=== PATIENT | female | born 1965 | race Two or more races ===

== ENCOUNTER 2023-02-28 12:07 | Emergency (ER) | payer OTHER ==
[~2023-02-28] VITALS: Ht 157.5 cm; Wt 53.1 kg
[~2023-02-28 12:07] MED LIST: SYNTHROID50 MCG; TOPROL XL25 MG
== END 2023-02-28 15:07 | disposition home or self-care (01) ==
LOC: ER 12:07
DX: S92.503A Displaced unspecified fracture of unspecified lesser toe(s), initial encounter for closed fracture (principal); W22.03XA Walked into furniture, initial encounter; Y93.9 Activity, unspecified; Y92.9 Unspecified place or not applicable; Y99.9 Unspecified external cause status

== ENCOUNTER 2023-07-05 11:08 | Emergency (ER) | payer OTHER ==
[~2023-07-05] VITALS: Ht 157.5 cm; Wt 50.8 kg
[2023-07-05] MEDS ORDERED: SYNTHROID75 MCG PO (11:36)
[2023-07-05] MEDS ORDERED: METOPROLOL SUCC50 MG PO (11:36)
[2023-07-05 14:13] LABS: HEMATOCRIT 40.1 % (36.0-45.00); HEMOGLOBIN 13.6 g/dL (12.0-15.00); MEAN CELL VOLUME 86.4 fL (80.00-100.00); MEAN CORPUSCULAR HEMOGLOBIN 29.3 pg (27.00-32.0); MEAN CORPUSCULAR HGB CONC 33.9 g/dl (32.0-36.0); PLATELET COUNT 184 K/uL (150-450); RED BLOOD COUNT 4.64 M/uL (4.00-6.00); RED CELL DISTRIBUTION WIDTH 13.2 % (11.5-14.5)
[2023-07-05 14:57] LABS: ALBUMIN 3.9 gm/dL (3.4-5.0); BILIRUBIN TOTAL 0.55 mg/dL (0.3-1.2); CALCIUM 9.7 mg/dL (8.5-10.1); CREATININE SERUM 0.69 mg/dL (0.55-1.02); GFR 87.69; GLOBULINA 3.8 G/DL (2.4-3.5); POTASSIUM 4.47 mEq/L (3.5-5.1); TOTAL PROTEIN 7.7 gm/dL (6.4-8.2)
[2023-07-05 15:11] LABS: PH,URINE 5.5 (5.0-8.0); URINE APPEARANCE Clear; URINE BILIRRUBIN Negative (NEGATIVE); URINE BLOOD Negative; URINE COLOR Yellow; URINE GLUCOSE Negative (NEGATIVE); URINE LEUKOCYTE Negative; URINE NITRATE Negative; URINE PROTEIN Negative (NEGATIVE); URINE UROBILINOGEN 0.2 E.U./dl
[2023-07-05 15:20] LABS: URINE BACTERIA 2.5 uL (0.0-1933); URINE EPITHELIAL CELLS 1.2 uL (0.0-38.8); URINE RBC 1.4 uL (0.0-20.8); URINE WBC 0.6 uL (0.0-23.2)
== END 2023-07-05 16:57 | disposition home or self-care (01) ==
LOC: ER 11:08
PROVIDERS: General Practice
DX: K21.9 Gastro-esophageal reflux disease without esophagitis (principal); R10.12 Left upper quadrant pain; Z88.0 Allergy status to penicillin; E03.9 Hypothyroidism, unspecified

== ENCOUNTER 2023-08-10 12:27 | Emergency (ER) | payer OTHER ==
[~2023-08-10] VITALS: Ht 157.5 cm; Wt 50.3 kg
[~2023-08-10 12:27] MED LIST changes: +METOPROLOL SUCC50 MG PO; +SYNTHROID75 MCG PO
[2023-08-10 17:05] LABS: PH,URINE 5.5 (5.0-8.0); URINE APPEARANCE Clear; URINE BILIRRUBIN Negative (NEGATIVE); URINE BLOOD Negative; URINE COLOR Yellow; URINE GLUCOSE Negative (NEGATIVE); URINE LEUKOCYTE Negative; URINE NITRATE Negative; URINE PROTEIN Negative (NEGATIVE); URINE UROBILINOGEN 0.2 E.U./dl
[2023-08-10 17:09] LABS: URINE EPITHELIAL CELLS 2.4 uL (0.0-38.8); URINE WBC 2.9 uL (0.0-23.2)
[2023-08-10 17:11] LABS: HEMATOCRIT 38.1 % (36.0-45.00); HEMOGLOBIN 12.6 g/dL (12.0-15.00); MEAN CELL VOLUME 87.3 fL (80.00-100.00); MEAN CORPUSCULAR HGB CONC 33.2 g/dl (32.0-36.0); PLATELET COUNT 192 K/uL (150-450); RED BLOOD COUNT 4.36 M/uL (4.00-6.00); RED CELL DISTRIBUTION WIDTH 13.1 % (11.5-14.5)
[2023-08-10 17:26] LABS: CALCIUM 9.7 mg/dL (8.5-10.1); CREATININE SERUM 0.7 mg/dL (0.55-1.02); GFR 86.25; POTASSIUM 4.01 mEq/L (3.5-5.1)
[2023-08-10 17:36] LABS: URINE BACTERIA 2.5 uL (0.0-1933); URINE RBC 1.7 uL (0.0-20.8)
== END 2023-08-10 18:06 | disposition home or self-care (01) ==
LOC: ER 12:27
PROVIDERS: General Practice
DX: R10.11 Right upper quadrant pain (principal); Z88.0 Allergy status to penicillin

== ENCOUNTER → 2025-04-20 | Emergency (ER) | payer OTHER ==
[~2025-04-20] VITALS: Ht 157.5 cm; Wt 47.6 kg
[~2025-04-20] MED LIST changes: +0.9 % SODIUM CHLORIDE 250 ML IV SCH; +CALTRATE 600+D1 EACH; +HYOSCYAMINE SULFATE 0.125 MG TAB.SUBL ONE; +LACTOBACILLUS ACIDOPHILUS 1 CAP CAP PO ONE; +METRONIDAZOLE/SODIUM CHLORIDE 500 MG/100 ML PIGGYBACK IV ONE; +SYNTHROID88 MCG PO; +VITAMIN D310 MCG/1 M PO
[2025-04-20 09:31] LABS: BASO % 0.3 % (0.1-1.2); EOS # 0.05 (0.04-0.54); EOS % 0.6 % (0.7-7.0); LYMPH # 1.97 (1.18-3.74); LYMPH % 22.7 % (19.3-53.1); MEAN PLATELET VOLUME 10.50 fl (9.4-12.4); MONO # 0.73 (0.24-0.82); MONO % 8.4 % (4.7-12.5); NEUT # 5.86 (1.56-6.13); NEUT % 67.5 % (34.0-71.1); RED CELL DISTRIBUTION WIDTH 13.0 % (11.6-14.4)
[2025-04-20 09:42] LABS: URINE APPEARANCE Clear; URINE BILIRRUBIN Negative (NEGATIVE); URINE BLOOD Negative; URINE COLOR Yellow; URINE GLUCOSE Negative (NEGATIVE); URINE KETONE 15 (NEGATIVE); URINE LEUKOCYTE Negative; URINE NITRATE Negative; URINE PROTEIN Negative (NEGATIVE); URINE UROBILINOGEN 0.2 E.U./dl
[2025-04-20 09:45] LABS: URINE EPITHELIAL CELLS 1.9 uL (0.0-38.8); URINE RBC 2.3 uL (0.0-20.8)
[2025-04-20 10:07] LABS: URINE BACTERIA 1.1 uL (0.0-1933); URINE CAST 0.58 uL (0.0-1.40); URINE WBC 0.9 uL (0.0-23.2)
[2025-04-20 10:11] LABS: COVID-19 AG NEGATIVE (NEGATIVE)
[2025-04-20 10:15] LABS: ALT/SGPT 49.0 U/L (12-78); AST/SGOT 31.0 U/L (15-37); BILIRUBIN TOTAL 0.41 mg/dL (0.3-1.2); BUN CREA RATIO 16.0 (7.0-25.0); CREATININE SERUM 0.49 mg/dL (0.55-1.02); GFR 129.26; GLOBULINA 3.6 G/DL (2.4-3.5); GLUCOSE FASTING 97.0 mg/dL (65-100); OSMOLALITY SERUM 274.0 MOSM/KG (275-295)
== END | disposition home or self-care (01) ==
LOC: ER 07:37
PROVIDERS: Emergency Medicine
DX: K52.9 Noninfective gastroenteritis and colitis, unspecified (principal); Z20.822 Contact with and (suspected) exposure to COVID-19; E03.8 Other specified hypothyroidism; Z88.0 Allergy status to penicillin

== ENCOUNTER 2025-04-24 12:28 | Emergency (ER) | payer OTHER ==
[~2025-04-24] VITALS: Ht 162.6 cm; Wt 54.4 kg
[~2025-04-24 12:28] MED LIST changes: -0.9 % SODIUM CHLORIDE 250 ML IV SCH; -HYOSCYAMINE SULFATE 0.125 MG TAB.SUBL ONE; -LACTOBACILLUS ACIDOPHILUS 1 CAP CAP PO ONE; -METRONIDAZOLE/SODIUM CHLORIDE 500 MG/100 ML PIGGYBACK IV ONE
[2025-04-24] MEDS ORDERED: 0.9 % SODIUM CHLORIDE 500 ML IV ONE (14:45)
[2025-04-24 15:33] LABS: BASO % 0.6 % (0.1-1.2); EOS # 0.03 (0.04-0.54); EOS % 0.4 % (0.7-7.0); LYMPH # 1.77 (1.18-3.74); LYMPH % 21.4 % (19.3-53.1); MEAN PLATELET VOLUME 10.40 fl (9.4-12.4); MONO # 0.68 (0.24-0.82); MONO % 8.2 % (4.7-12.5); NEUT # 5.70 (1.56-6.13); NEUT % 69.0 % (34.0-71.1); RED CELL DISTRIBUTION WIDTH 12.8 % (11.6-14.4)
[2025-04-24 16:04] LABS: ALT/SGPT 45.0 U/L (12-78); AST/SGOT 29.0 U/L (15-37); BILIRUBIN TOTAL 0.63 mg/dL (0.3-1.2); BUN CREA RATIO 9.0 (7.0-25.0); CREATININE SERUM 0.68 mg/dL (0.55-1.02); GFR 88.56; GLOBULINA 3.5 G/DL (2.4-3.5); GLUCOSE FASTING 98.0 mg/dL (65-100); OSMOLALITY SERUM 266.0 MOSM/KG (275-295)
[2025-04-24] MEDS ORDERED: POTASSIUM BICARBONATE/CIT AC 25 MEQ TABLET.EFF PO ONE (17:00)
[2025-04-24 17:57] LABS: URINE APPEARANCE Clear; URINE BILIRRUBIN Negative (NEGATIVE); URINE BLOOD Negative; URINE COLOR Yellow; URINE GLUCOSE Negative (NEGATIVE); URINE KETONE 15 (NEGATIVE); URINE LEUKOCYTE Negative; URINE NITRATE Negative; URINE PROTEIN Negative (NEGATIVE); URINE UROBILINOGEN 0.2 E.U./dl
[2025-04-24 18:20] LABS: URINE BACTERIA 0 uL (0.0-1933); URINE CAST 0.00 uL (0.0-1.40); URINE EPITHELIAL CELLS 0.2 uL (0.0-38.8); URINE RBC 0.4 uL (0.0-20.8); URINE WBC 0.5 uL (0.0-23.2)
[2025-04-24] MEDS ORDERED: FAMOTIDINE/PF 20 MG/2 ML VIAL ONE (18:36)
[2025-04-24] MEDS ORDERED: FAMOTIDINE/PF 20 MG/2 ML VIAL IV ONE (18:45)
== END 2025-04-24 20:44 | disposition home or self-care (01) ==
LOC: ER 12:43
PROVIDERS: Preventive Medicine Public Health & General Preventive Medicine
DX: E87.6 Hypokalemia (principal); R20.2 Paresthesia of skin; Z88.0 Allergy status to penicillin

== ENCOUNTER 2025-04-27 15:31 | Emergency (ER) | payer OTHER ==
[~2025-04-27] VITALS: Ht 157.5 cm; Wt 46.3 kg
[2025-04-27] MEDS ORDERED: METRONIDAZOLE500 MG (16:41)
[2025-04-27] MEDS ORDERED: PROLIA60 MG/1 ML (16:42)
[2025-04-27] MEDS ORDERED: 0.9 % SODIUM CHLORIDE 1,000 ML IV STA (17:07)
[2025-04-27] MEDS ORDERED: ONDANSETRON HCL 2 MG/ML VIAL ONE (17:07)
[2025-04-27] MEDS ORDERED: ONDANSETRON HCL 2 MG/ML VIAL IV STA (17:08)
[2025-04-27 17:31] LABS: BASO % 0.4 % (0.1-1.2); EOS # 0.09 (0.04-0.54); EOS % 1.2 % (0.7-7.0); LYMPH # 2.13 (1.18-3.74); LYMPH % 28.5 % (19.3-53.1); MEAN PLATELET VOLUME 10.30 fl (9.4-12.4); MONO # 0.82 (0.24-0.82); MONO % 11.0 % (4.7-12.5); NEUT # 4.39 (1.56-6.13); NEUT % 58.8 % (34.0-71.1); RED CELL DISTRIBUTION WIDTH 13.2 % (11.6-14.4)
[2025-04-27 18:30] LABS: URINE APPEARANCE Clear; URINE BILIRRUBIN Negative (NEGATIVE); URINE BLOOD Negative; URINE COLOR Yellow; URINE GLUCOSE Negative (NEGATIVE); URINE KETONE Trace (NEGATIVE); URINE LEUKOCYTE Negative; URINE NITRATE Negative; URINE PROTEIN Negative (NEGATIVE); URINE UROBILINOGEN 0.2 E.U./dl
[2025-04-27 18:34] LABS: URINE EPITHELIAL CELLS 1.5 uL (0.0-38.8); URINE RBC 2.6 uL (0.0-20.8)
[2025-04-27 18:42] LABS: URINE BACTERIA 2.3 uL (0.0-1933); URINE CAST 0.14 uL (0.0-1.40); URINE WBC 1.5 uL (0.0-23.2)
[2025-04-27 18:51] LABS: ALT/SGPT 43.0 U/L (12-78); AST/SGOT 28.0 U/L (15-37); BILIRUBIN TOTAL 0.58 mg/dL (0.3-1.2); BUN CREA RATIO 8.0 (7.0-25.0); CREATININE SERUM 0.62 mg/dL (0.55-1.02); GFR 98.52; GLOBULINA 4.0 G/DL (2.4-3.5); GLUCOSE FASTING 93.0 mg/dL (65-100); OSMOLALITY SERUM 276.0 MOSM/KG (275-295)
== END 2025-04-27 20:13 | disposition home or self-care (01) ==
LOC: ER 15:31
PROVIDERS: Emergency Medicine
DX: R10.2 Pelvic and perineal pain (principal); R10.9 Unspecified abdominal pain; R30.0 Dysuria; E03.8 Other specified hypothyroidism; Z88.0 Allergy status to penicillin

== ENCOUNTER 2025-05-07 12:20 | Emergency (ER) | payer OTHER ==
[~2025-05-07] VITALS: Ht 162.6 cm; Wt 45.4 kg
[~2025-05-07 12:20] MED LIST changes: +METRONIDAZOLE500 MG; +PROLIA60 MG/1 ML
[2025-05-07] MEDS ORDERED: TRAMADOL HCL 50 MG TABLET PO ONE (13:15)
[2025-05-07 13:38] LABS: BASO % 0.3 % (0.1-1.2); EOS # 0.06 (0.04-0.54); EOS % 0.9 % (0.7-7.0); LYMPH # 1.87 (1.18-3.74); LYMPH % 28.3 % (19.3-53.1); MEAN PLATELET VOLUME 10.10 fl (9.4-12.4); MONO # 0.84 (0.24-0.82); NEUT # 3.80 (1.56-6.13); NEUT % 57.5 % (34.0-71.1); RED CELL DISTRIBUTION WIDTH 13.2 % (11.6-14.4)
[2025-05-07 13:39] LABS: MONO % 12.7 % (4.7-12.5)
[2025-05-07 14:14] LABS: ALT/SGPT 37.0 U/L (12-78); AST/SGOT 26.0 U/L (15-37); BILIRUBIN TOTAL 0.63 mg/dL (0.3-1.2); BUN CREA RATIO 17.0 (7.0-25.0); CREATININE SERUM 0.52 mg/dL (0.55-1.02); GFR 120.69; GLOBULINA 3.3 G/DL (2.4-3.5); GLUCOSE FASTING 87.0 mg/dL (65-100); OSMOLALITY SERUM 268.0 MOSM/KG (275-295)
[2025-05-07 15:36] LABS: INR 1.1
== END 2025-05-07 19:33 | disposition home or self-care (01) ==
LOC: ER 12:20
PROVIDERS: General Practice
DX: R45.0 Nervousness (principal); R20.0 Anesthesia of skin; R07.89 Other chest pain; E03.8 Other specified hypothyroidism; Z88.0 Allergy status to penicillin